=== PATIENT | female | born 2000 | race Caucasian/White ===

== ENCOUNTER 2022-07-12 14:04 | Emergency (ER) | payer OTHER ==
[~2022-07-12] VITALS: Ht 162.6 cm; Wt 54.5 kg
[2022-07-12 17:50] LABS: COVID AG,FIA SOURCE NASAL SWAB
[2022-07-12 19:22] VITALS: BP 119/73
[2022-07-12 19:39] LABS: INFLUENZA TYPE A NEGATIVE FOR TYPE A (NEGATIVE); INFLUENZA TYPE B POSITIVE FOR TYPE B (NEGATIVE)
[2022-07-12] MEDS ORDERED: BENZ1LOZ77 PO (19:50)
[2022-07-12] MEDS ORDERED: IBUP-1492 PO (19:50)
[2022-07-12] MEDS ORDERED: ACET-66 PO (19:50)
== END 2022-07-12 19:22 | disposition home or self-care (01) ==
LOC: EMS 14:20
DX: U07.1 COVID-19 (principal); J10.1 Influenza due to other identified influenza virus with other respiratory manifestations; Z88.0 Allergy status to penicillin
CPT/HCPCS: 87804; 99283

== ENCOUNTER 2024-06-30 16:30 | Emergency (ER) | payer OTHER ==
[~2024-06-30] VITALS: Ht 160 cm; Wt 63.6 kg
[~2024-06-30 16:30] MED LIST: ACET-66 PO; BENZ1LOZ50 PO; IBUP-1492 PO
[2024-06-30 16:47] VITALS: BP 109/47; PULSE 74; RESP 16; TEMP 99.2; O2SAT 100
[2024-06-30 17:13] LABS: COVID AG,FIA SOURCE NASAL SWAB
[2024-06-30 18:08] LABS: RAPID GROUP A STREP NEGATIVE (NEGATIVE)
[2024-06-30 18:10] LABS: SARS-COV2 (COVID) ANTIGEN,FIA Negative (Negative)
[2024-06-30 18:11] LABS: INFLUENZA TYPE A NEGATIVE FOR TYPE A (NEGATIVE); INFLUENZA TYPE B NEGATIVE FOR TYPE B (NEGATIVE)
[2024-06-30] MEDS ORDERED: AZIT250T9 PO (18:22)
[2024-06-30] MEDS ORDERED: FLUT16SP NASAL (18:23)
== END 2024-06-30 18:31 | disposition home or self-care (01) ==
LOC: EMS 16:30
DX: H65.91 Unspecified nonsuppurative otitis media, right ear (principal); Z88.0 Allergy status to penicillin; Z20.822 Contact with and (suspected) exposure to COVID-19
CPT/HCPCS: 87430; 87804; 99283